=== PATIENT | female | born 1945 | race Caucasian/White ===

== ENCOUNTER → 2016-06-23 | Outpatient (CLI) | payer MEDICARE, BC ==
--- NOTE | 2016-06-23 14:24 | RADRPT ---
PROCEDURE: XR right knee. CLINICAL INDICATION: Knee pain. TECHNIQUE: Three views are available for review. COMPARISON: No comparison available FINDINGS: There is a total knee replacement. There is no evidence of loosening of the prosthesis. The osseous structures are normal in mineralization, architecture and alignment No acute fracture or dislocation is seen.No osseous lesions are identified. The soft tissues are unremarkable . IMPRESSION: Unremarkable total knee replacement. RPTAT: [facility] .Ras Flores MD, MD Date Time Electronically viewed and signed by .Ras Flores MD, on 06/23/2016 14:24 .B/
--- NOTE | 2016-06-23 14:25 | RADRPT ---
PROCEDURE: XR left knee. CLINICAL INDICATION: Knee pain TECHNIQUE: AP weightbearing, PA weightbearing, lateral weightbearing and sunrise views are availab le for review. COMPARISON: None available FINDINGS: There is moderate to severe osteoarthrosis involving the lateral tibial femoral compartment and mild osteoarthrosis involving the medial tibial femoral compartment and the patellofemoral compartment. This is associated with joint space narrowing, subchondral sclerosis and osteophytosis. There is diffuse osteopenia. No fractures are identified. No osseous lesions are identified. The soft tissues are unremarkable. IMPRESSION: Diffuse osteopenia Moderate to severe osteoarthrosis involving the lateral tibial femoral compartment and mild osteoart hrosis involving the medial tibial femoral compartment and the patellofemoral compartment. RPTAT: [facility] .Ras Flores MD, Date Time Electronically viewed and signed by .Ras Flores MD, on 06/23/2016 14:25 .B/
== END | disposition home or self-care (01) ==
LOC: HKI 13:51
PROVIDERS: ATTEND Orthopaedic Surgery
DX: Z47.1 Aftercare following joint replacement surgery (principal); Z96.651 Presence of right artificial knee joint; M17.12 Unilateral primary osteoarthritis, left knee
CPT/HCPCS: 73562; 73564; G0463